=== PATIENT | male | born 1960 | race African-American/Black ===

== ENCOUNTER 2017-10-14 12:50 | Emergency (ER) | payer BC | END 2017-10-14 15:45 | disposition home or self-care (01) | LOC: ERS 12:50 | DX: J11.1 Influenza due to unidentified influenza virus with other respiratory manifestations (principal); E11.9 Type 2 diabetes mellitus without complications; Z79.84 Long term (current) use of oral hypoglycemic drugs | CPT/HCPCS: 99283 ==

== ENCOUNTER 2020-11-08 15:04 | Inpatient (IN) | payer BC, OTHER ==
[~2020-11-08 15:04] MED LIST: Iopamidol-370 76% 500 ML 1 ML ONE
[2020-11-08 15:39] LABS: #Eosinphils 0.1 thou/uL (0.0-0.7); #Lymphocytes 1.8 thou/uL (1.20-3.40); #Monocytes 0.7 thou/uL (0.11-0.59); %Basophils 0.6 % (0.0-1.0); %Eosinophils 2.3 % (0.0-10.0); %Lymphocytes 31.5 % (21.0-51.0); %Monocytes 12.4 % (0.0-10.0); %Neutrophils 53.1 % (42.0-75.0); Hemoglobin 15.4 g/dL (14.0-18.0); Mean Corpuscular Volume 90.6 fL (78.0-98.0); Mean Platelet Volume 8.2 fL (7.4-10.4); Platelet Count 274 thou/uL (130-400); RBC Distribution Width 12.1 % (11.5-14.5); Red Blood Cell (RBC) Count 5.31 mill/uL (4.70-6.10); White Blood Cell (WBC) Count 5.7 thou/uL (4.8-10.8)
--- NOTE | 2020-11-08 15:44 | RAD ---
PORTABLE CHEST: 11/08/20 HISTORY: COVID positive. Increasing shortness of breath. Heart size and mediastinum are within normal limits. Lungs appears clear of any infiltrative process. IMPRESSION: No active intrathoracic disease. POS: AH
[2020-11-08 15:58] LABS: ALT (SGPT) 57 U/L (8-55); AST (SGOT) 24 U/L (5-34); Albumin 4.2 g/dL (3.5-5.0); Alkaline Phosphatase 74 U/L (40-110); Anion Gap 17 mmol/L (10-20); BUN (Urea Nitrogen) 14 mg/dL (8.4-25.7); Bilirubin, Total 0.4 mg/dL (0.2-1.2); Calc. Creatinine Clearance 0 mL/min (70-130); Calcium 9.6 mg/dL (7.8-10.44); Carbon Dioxide 27 mmol/L (22-29); Chloride 103 mmol/L (98-107); Globulin 3.4 g/dL (2.4-3.5); Glucose 248 mg/dL (70-105); Potassium 3.6 mmol/L (3.5-5.1); Protein, Total 7.6 g/dL (6.0-8.3); Sodium 143 mmol/L (136-145)
[2020-11-08] MEDS ORDERED: Dexamethasone 10 MG/ML VIAL ONE (16:10)
[2020-11-08] MEDS ORDERED: Albuterol 200 PUFF (6.7GM INHALER) ONE (16:13)
--- NOTE | 2020-11-08 16:44 | CT ---
CT PULMONARY ANGIOGRAM WITH IV CONTRAST AND 3D POSTPROCESSIN11/08/20 HISTORY: Worsening shortness of breath with recently diagnosis of COVID-19 infection. FINDINGS: There is good opacification of the pulmonary arterial vasculature with filling defects in the pulmona ry arterial branches bilaterally and a small saddle embolus in the bifurcation extending into the gisele n pulmonary arteries on either side. There is straightening of the interventricular septum suggestive of right ventricular strain. No pleural or pericardial effusions are seen. There is mild scarring in the peripheral aspect of the right lower lung. There are scattered bullous changes. Mild small patch y areas of ground glass opacities noted in the lower lobes posteriorly. No acute osseous abnormalitie s are seen. There are degenerative changes in the spine and costovertebral junctions. IMPRESSION: Extensive bilateral pulmonary embolism. Discussed over the telephone with the ER physician, Dr. Delio Pinto at 4:28 p.m. POS: OFF
[2020-11-08 17:00] LABS: CKMB 1.6 ng/mL (0-6.6)
[2020-11-08 17:15] LABS: INR-International Normal Ratio 1.1; PTT 27.5 sec (22.9-36.1); Prothrombin Time 14.9 sec (12.0-14.7)
[2020-11-08 18:15] LABS: Bilirubin Negative (Negative); Blood, Urine Trace (Negative); Clarity Clear (Clear); Glucose, Urine (Dipstick) Greater than 1000 mg/dL (Negative); Ketone, Urine Negative (Negative); Leukocyte 250 Leu/uL (Negative); Nitrite Negative (Negative); Protein, Urine (Dipstick) 50 mg/dL (Neg-Trace); Specific Gravity, Urine 1.046 (1.002-1.036); Squamous Epithelial None Seen HPF (0-3); Urobilinogen Normal mg/dL (Less than 2); WBC/HPF 21-50 HPF (0-3); pH, Urine 5.5 (5.0-9.0)
[2020-11-08 18:25] LABS: Bacteria/HPF 1+ HPF (None Seen)
[2020-11-08 19:06] LABS: Lactic Acid 2.6 mmol/L (0.5-2.2)
[2020-11-08] MEDS ORDERED: Heparin 25,000 units/D5W 500 ML ONE (19:06)
[2020-11-08] MEDS ORDERED: Heparin 10,000 UNITS/ 10 ML VIAL ONE (19:06)
[2020-11-08 19:19] LABS: INR-International Normal Ratio 2.2
[2020-11-08 19:20] LABS: PTT 74.7 sec (22.9-36.1)
[2020-11-08 19:44] LABS: Troponin I 0.569 ng/mL (< 0.028)
[2020-11-08] MEDS ORDERED: Promethazine HCl 12.5 MG in Sodium Chloride 0.9% 50 ML IVPB PRN (19:51)
[2020-11-08] MEDS ORDERED: Albuterol 200 PUFF (6.7GM INHALER) INH PRN (19:51)
[2020-11-08] MEDS ORDERED: Guaifenesin DM 100-10/5 ML UDCUP PO PRN (19:51)
[2020-11-08] MEDS ORDERED: Acetaminophen 325 MG TAB PO PRN (19:51)
[2020-11-08] MEDS ORDERED: cloNIDine 0.1 MG TAB PO PRN (19:51)
[2020-11-08] MEDS ORDERED: Labetalol HCl 100 MG/20 ML VIAL SLOW IVP PRN (19:51)
[2020-11-08] MEDS ORDERED: HYDROcodone/Acetaminophen 5/325 mg Tablet PO PRN (19:51)
[2020-11-08] MEDS ORDERED: Ondansetron PF 4 MG/2 ML Vial IVP PRN (19:51)
[2020-11-08] MEDS ORDERED: hydrALAZINE 20 MG/ML VIAL SLOW IVP PRN (19:51)
[2020-11-08] MEDS ORDERED: Electrolyte Replacement Protocol 1 EACH FS SCH (20:00)
[2020-11-08] MEDS ORDERED: Heparin 10,000 UNITS/ 10 ML VIAL SLOW IVP SCH (20:30)
[2020-11-08] MEDS ORDERED: Heparin 25,000 units/D5W 500 ML IV SCH (20:30)
[2020-11-08 20:43] VITALS: BMI 33.1
[2020-11-08] MEDS ORDERED: Azithromycin 500 MG in Syringe 0 ML IVPB SCH (21:00)
[2020-11-08] MEDS ORDERED: cefTRIAXone\\ROCEPHIN 1 GM in Sodium Chloride 0.9% 100 ML IVPB SCH (21:00)
[2020-11-08] MEDS: Famotidine 20 MG TAB PO SCH (21:21)
[2020-11-08 22:08] LABS: Troponin I 0.669 ng/mL (< 0.028)
[2020-11-09 01:44] LABS: PTT 224.9 sec (22.9-36.1)
--- NOTE | 2020-11-09 01:47 | PDOC.HHP ---
Hospitalist HPI - History of Present Illness Shortness of breath History of Present Illness: Patient is a 60 year old male with PMH DM, DVT who presents to ED for shortness of breath. Patient diagnosed with covid on 11/02, reports worsening SOB over that time, especially last 2 days, no fever or chest pain. He has a history of large DVT in the past, completed period of using anticoagutation and is now not on chronic anticoagulation. CT scan in ED found large saddle PE. BP was noted in 90s systolic. patient recieved tPA, started on heparin drip. he felt much better after tPA. he was covid positive, however as symptoms improved after tPA suspected that PE more cause of sypmtoms. patient admitted to CCU for post tPA monitoring. Hospitalist ROS - Review of Systems Constitutional: denies: fever, chills, sweats, weakness, malaise, other Eyes: denies: pain, vision change, conjunctivae inflammation, eyelid inflamm ation, redness, other ENT: denies: ear pain, ear discharge, nose pain, nose discharge, nose congestion, mouth pain, mouth swelling, throat pain, throat swelling, other Respiratory: denies: cough, dry, shortness of breath, hemoptysis, SOB with excertion, pleuritic pain, sputum, wheezing, other Cardiovascular: denies: chest pain, palpitations, orthopnea, paroxysmal noc. dyspnea, edema, light headedness, other Gastrointestinal: denies: nausea, vomiting, abdominal pain, diarrhea, constipation, melena, hematochezia, other Genitourinary: denies: dysuria, frequency, incontinence, hematuria, retention, other Musculoskeletal: denies: neck pain, shoulder pain, arm pain, back pain, hand pain, leg pain, foot pain, other Skin: denies: rash, lesions, kwame, bruising, other Neurological: denies: weakness, numbness, incoordination, change in speech, confusion, seizures, other All other systems reviewed; all pertinent +/- noted in HPI/Subj - Medication Medications: Active Medications Generic Name Dose Route Start Last Admin Trade Name Freq PRN Reason Stop Dose Admin Acetaminophen 650 mg 11/08/20 19:51 11/08/20 21:31 Acetaminophen 325 Mg Tab PO 650 mg Q4H PRN Administration Headache/Fever/Mild Pain (1-3) Famotidine 20 mg 11/08/20 21:00 11/08/20 21:21 Famotidine 20 Mg Tab PO 20 mg BID ELIEZER Administration metFORMIN FriNov 08, 2020 15:24 GENE Low Miranda TABLET : Strength - 1,000 mg : ORAL Patient Dose: 1000 mg Oral 2 times a day (before meals). Januvia FriNov 08, 2020 15:24 GENE Low Miranda TABLET : Strength - 25 mg : ORAL Patient Dose: UNK mg Oral once a day (in the morning). Jardiance FriNov 08, 2020 15:25 GENE Low Miranda tablet : Strength - 25 mg : ORAL Patient Dose: 1 tab(s) 2 times a day (before meals). Hospitalist History - Past Medical History Other Medical History: DM, DVT - Past Surgical History Past Surgical History: reports: no pertinent history - Family History Family History: reports: no pertinent history - Social History Alcohol: reports: None Drugs: reports: none - Exam General Appearance: NAD, awake alert Eye: PERRL, anicteric sclera ENT: normocephalic atraumatic, no oropharyngeal lesions, moist mucosa Neck: supple, symmetric, no JVD, no thyromegaly, no lymphadenopathy, no carotid bruit Heart: RRR, no murmur, no gallops, no rubs, normal peripheral pulses Respiratory: CTAB, no wheezes, no rales, no ronchi, normal chest expansion, no tachypnea, normal percussion Gastrointestinal: soft, non-tender, non-distended, normal bowel sounds, no palpable masses, no hepatomegaly, no splenomegaly, no bruit Extremities: no cyanosis, no clubbing, no edema Skin: normal turgor, no lesions, no rashes Neurological: cranial nerve grossly intact, normal sensation to touch, no weakness, no focal deficits, no new deficit Musculoskeletal: normal tone, normal strength, no muscle wasting Psychiatric: normal affect, normal behavior, A&O x 3 Hospitalist Results - Labs Result Diagrams: 11/08/20 15:29 11/08/20 15:29 Lab results: WBC 5.7 thou/uL (4.8-10.8) 11/08/20 15:29 Hgb 15.4 g/dL (14.0-18.0) 11/08/20 15: Hct 48.1 % (42.0-52.0) 11/08/20 15: MCV 90.6 fL (78.0-98.0) 11/08/20 15: Plt Count 274 thou/uL (130-400) 11/08/20 15: Neutrophils % 53.1 % (42.0-75.0) 11/08/20 15:29 Sodium 143 mmol/L (136-145) 11/08/20 15: Potassium 3.6 mmol/L (3.5-5.1) 11/08/20 15: Chloride 103 mmol/L (98-107) 11/08/20 15: Carbon Dioxide 27 mmol/L (22-29) 11/08/20 15: BUN 14 mg/dL (8.4-25.7) 11/08/20 15: Creatinine 1.38 mg/dL (0.7-1.3) H 11/08/20 15: Glucose 248 mg/dL (70-105) H 11/08/20 15: Lactic Acid 2.6 mmol/L (0.5-2.2) H 11/08/20 18:13 Calcium 9.6 mg/dL (7.8-10.44) 11/08/20 15: Total Bilirubin 0.4 mg/dL (0.2-1.2) 11/08/20 15: AST 24 U/L (5-34) 11/08/20 15: ALT 57 U/L (8-55) H 11/08/20 15: Alkaline Phosphatase 74 U/L (40-110) 11/08/20 15: CK-MB (CK-2) 1.6 ng/mL (0-6.6) 11/08/20 15: Troponin I 0.669 ng/mL (< 0.028) H* 11/08/20 21: B-Natriuretic Peptide 90.8 pg/mL (0-100) 11/08/20 15: Serum Total Protein 7.6 g/dL (6.0-8.3) 11/08/20 15: Albumin 4.2 g/dL (3.5-5.0) 11/08/20 15: Urine Ketones Negative mg/dL (Negative) 11/08/20 17:52 Urine Blood Trace (Negative) A 11/08/20 17:52 Urine Nitrite Negative (Negative) 11/08/20 17:52 Ur Leukocyte Esterase 250 Donell/uL (Negative) A 11/08/20 17:52 Urine RBC 4-6 HPF (0-3) A 11/08/20 17:52 Urine WBC 21-50 HPF (0-3) A 11/08/20 17:52 Ur Squamous Epith Cells None Seen HPF (0-3) 11/08/20 17:52 Urine Bacteria 1+ HPF (None Seen) A 11/08/20 17:52 Additional comment: VITAL SIGNS FriNov 08, 2020 15:18 GENE Low Miranda BP: 99/75 MAP: 83 Pulse: 110 Resp: 24 Pain: 2 O2 sat: 89 on (Room Air) Time: 11/08/2020 15:18. labs, imaging reports, Ed documents reviewed. - EKG Interpretation EKG: EKG INTERPRETATION Wed Nov 08, 2020 15:33 DO Pinto Anthony MONITOR STRIP Sinus tachycardia. 12 LEAD EKG INTERPRETATION 109 QT 500 right bundle branch block T wave inversions in the anterior inferior leads. EKG intependantly reviewed and agree with ED physician interpretation Hospitalist H&P A/P - Plan Plan: Patient is a 60 year old male with PMH DM, DVT who presents to ED for shortness of breath. # covid 19 infection # pulmonary embolism Patient diagnosed with covid on 11/02, reports worsening SOB over that time, especially last 2 days, no fever or chest pain. He has a history of large DVT in the past, completed period of using anticoagutation and is now not on chronic anticoagulation. CT scan in ED found large saddle PE. BP was noted in 90s systolic. patient recieved tPA, started on heparin drip. he felt much better after tPA. he was covid positive, however as symptoms improved after tPA suspected that PE more cause of sypmtoms. patient admitted to CCU for post tPA monitoring. - admit to CCU - continue heparin drip - close monitoring - has history of DVT, will likely need prolonged course of anticoagulation on discharge - continue dexamethasone, levaquin
[2020-11-09 04:35] LABS: #Lymphocytes 0.7 thou/uL (1.20-3.40); #Monocytes 0.3 thou/uL (0.11-0.59); #Neutrophils 6.3 thou/uL (1.40-6.50); %Basophils 0.3 % (0.0-1.0); %Eosinophils 0.2 % (0.0-10.0); %Lymphocytes 9.2 % (21.0-51.0); %Monocytes 4.1 % (0.0-10.0); %Neutrophils 86.3 % (42.0-75.0); Hemoglobin 12.3 g/dL (14.0-18.0); Mean Corpuscular HGB CONC 32.4 g/dL (32.0-36.0); Mean Corpuscular Hemoglobin 29.1 pg (27.0-31.0); Mean Platelet Volume 7.9 fL (7.4-10.4); Platelet Count 188 thou/uL (130-400); Red Blood Cell (RBC) Count 4.21 mill/uL (4.70-6.10); White Blood Cell (WBC) Count 7.3 thou/uL (4.8-10.8)
[2020-11-09 04:55] LABS: Anion Gap 11 mmol/L (10-20); BUN (Urea Nitrogen) 11 mg/dL (8.4-25.7); Calc. Creatinine Clearance 148 mL/min (70-130); Calcium 7.2 mg/dL (7.8-10.44); Carbon Dioxide 22 mmol/L (22-29); Chloride 111 mmol/L (98-107); Glucose 177 mg/dL (70-105); Magnesium 1.7 mg/dL (1.6-2.6); Potassium 3.8 mmol/L (3.5-5.1); Sodium 140 mmol/L (136-145)
[2020-11-09] MEDS ORDERED: Magnesium 2 GM/50 ML 2 GM in Premix Bag 1 BAG IVPB SCH (06:45)
[2020-11-09] MEDS: Famotidine 20 MG TAB PO SCH ×2 (07:30→20:46)
[2020-11-09] MEDS: Dexamethasone 4 mg/ml Vial SLOW IVP SCH (07:30)
--- NOTE | 2020-11-09 11:18 | CON ---
DATE OF CONSULTATION: 11/09/2020 REASON FOR CONSULTATION: Elevated troponins. HISTORY OF PRESENT ILLNESS: Mr. Garces is a very pleasant 60-year-old white gentleman, who comes to the hospital for worsening shortness of breath. He was diagnosed with COVID-19 pneumonia about seven days ago. However, he slowly started to get worsening shortness of breath, worse in the last two days. No fevers. No chest pains. He was evaluated in the ER and was found to have a large saddle embolus. Because his blood pressure was in the 90s and such a large clot burden, he received tPA and started on heparin drip. He actually felt a lot better after the tPA was administered. Cardiology is being consulted. During his evaluation, troponins were drawn and they have trended upwards. PAST MEDICAL HISTORY: 1. Type 2 diabetes. 2. History of DVTs. 3. History of COVID-19 pneumonia diagnosed just a week ago. 4. GERD. OUTPATIENT MEDICATIONS: 1. Metformin 1000 mg twice a day. 2. Januvia 25 mg a day. 3. Jardiance 25 mg twice a day. ALLERGIES: NO KNOWN DRUG ALLERGIES. SOCIAL HISTORY: No alcohol, tobacco, or drugs. FAMILY HISTORY: Noncontributory. PAST SURGICAL HISTORY: None. REVIEW OF SYSTEMS: A 12-point review of systems was done and was found to be negative other than stated in the history of present illness. PHYSICAL EXAMINATION: VITAL SIGNS: Temperature 98.4, pulse 95, respiratory rate 22, saturating 95% on 2 L nasal cannula, and blood pressure 126/80. GENERAL: Awake, alert and oriented x3. The rest of the physical exam was secondary to the active COVID-19 infection. LABORATORY DATA: Laboratory work was reviewed. CBC with a white count of 7, hemoglobin of 12.3, hematocrit 37, platelet count of 188. Coags were reviewed. Chemistries were reviewed. His troponin is 0.06 up to 0.56 and then 0.66. BNP was 90. Lactic acid was 2.6. Rest of metabolic profile was unremarkable except for sugars of 177 and calcium 7.2. UA had 50 proteins, 250 leukocyte esterase, 21 to 50 white cells, 1+ bacteria. IMAGING DATA: CT of the chest was reviewed. EKG was reviewed. He has right bundle-branch block. ASSESSMENT: 1. Submassive pulmonary embolism. 2. Rnn-VM-vruvhboog myocardial infarction, most likely type 2, type of myocardial infarction demand ischemia. 3. Acute COVID-19 infection. PLAN: 1. Continue post tPA protocol as well as full anticoagulation with heparin. 2. At this time, his elevated troponins are most likely related to his submassive pulmonary embolism and no further workup is warranted from the cardiac perspective. 3. We will get an echocardiogram to assess the right side of his heart to see what his RV function is with his PE. Thank you for letting us to participate in this patient's care. We will follow. Job ID: [id number]
[2020-11-09] MEDS: Heparin 25,000 units/D5W 500 ML IVPB SCH (12:46)
--- NOTE | 2020-11-09 14:58 | PDOC.HOSPP ---
- Subjective Encounter Date: 11/09/20 Subjective: Patient is doing well on room air. In no cardiopulmonary distress. - Objective Vital Signs & Weight: Vital Signs (12 hours) Temp Pulse Resp BP Pulse Ox 11/09/20 14:51 98.5 F 89 20 128/91 H 96 11/09/20 11:00 97.0 F L 11/09/20 08:00 97.3 F L Weight Weight 244 lb 4.355 oz Most Recent Monitor Data Heart Rate from ECG 96 NIBP 148/94 NIBP BP-Mean 112 Respiration from ECG 37 SpO2 95 I&O: 11/08/20 11/09/20 11/10/20 06:59 06:59 06:59 Intake Total 254 1032 Output Total 1800 600 Balance -1546 432 Result Diagrams: 11/09/20 03:54 11/09/20 03:54 Hospitalist ROS - Medication Medications: Active Medications Generic Name Dose Route Start Last Admin Trade Name Freq PRN Reason Stop Dose Admin Acetaminophen 650 mg 11/08/20 19:51 11/08/20 21:31 Acetaminophen 325 Mg Tab PO 650 mg Q4H PRN Administration Headache/Fever/Mild Pain (1-3) Dexamethasone 6 mg 11/09/20 09:00 11/09/20 07:30 Dexamethasone 4 Mg/Ml Vial SLOW IVP 6 mg DAILY ELIEZER Administration Famotidine 20 mg 11/08/20 21:00 11/09/20 07:30 Famotidine 20 Mg Tab PO 20 mg BID ELIEZER Administration Heparin Sodium/Dextrose 500 mls @ 0 mls/hr 11/09/20 18:00 11/09/20 12:46 Heparin 25,000 Units/D5w IVPB 500 mls INF ELIEZER Administration Protocol Per Protocol Sodium Chloride 10 ml 11/09/20 09:00 11/09/20 07:31 Flush - Normal Saline 10 Ml Syringe IVF 10 ml Q12HR ELIEZER Administration - Exam General Appearance: NAD, awake alert ENT: normocephalic atraumatic Neck: supple, symmetric, no JVD Heart: RRR, no murmur, no gallops Respiratory: CTAB, no wheezes, no rales, no ronchi Gastrointestinal: soft, non-tender, non-distended, normal bowel sounds Extremities: no cyanosis, no clubbing, no edema Neurological: cranial nerve grossly intact Psychiatric: normal affect, normal behavior Hosp A/P (1) Saddle embolism of pulmonary artery Code(s): I26.92 - SADDLE EMBOLUS OF PULMONARY ARTERY W/O ACUTE COR PULMONALE Status: Acute (2) Hx of deep venous thrombosis Code(s): Z86.718 - PERSONAL HISTORY OF OTHER VENOUS THROMBOSIS AND EMBOLISM Status: Acute (3) COVID-19 Code(s): U07.1 - COVID-19 Status: Acute (4) Elevated troponin I level Code(s): R77.8 - OTHER SPECIFIED ABNORMALITIES OF PLASMA PROTEINS Status: Acute - Plan Assessment Patient is a 60 year old male with a PMH of DVT and a recent diagnosis of COVID 19 who is currently admitted with saddle PE. He received tPA in the ER due to concern for massive PE. His SBP was in the low 90s. He is doing well now on heparin infusion. Cardiology was consulted today for rising troponin levels. He is in the unit for monitoring Acute PE Hx of DVT COVID 19 DM-2 PLAN: I will continue heparin infusion pending cardiac work up Follow up 2-D echo Trend troponins every 6 hours Patient will most likely require usp systemic anticoagulation I plan to discharge him on NOAC once above work up is complete Continue dexamethasone for COVID 19 No need for remdesivir or CCP due to lack of hypoxia Continue adjuctive therapy with multi-vitamins and zinc Good prognosis
[2020-11-09 17:18] LABS: Troponin I 0.156 ng/mL (< 0.028)
[2020-11-09] MEDS ORDERED: Heparin 10,000 UNITS/ 10 ML VIAL SLOW IVP SCH (18:00)
--- NOTE | 2020-11-09 18:28 | CON ---
DATE OF CONSULTATION: 11/09/2020 HISTORY OF PRESENT ILLNESS: Mr. Garces is a very pleasant gentleman, who said he started feeling bad on Friday. He started noticing that he was short of breath. He presented last night with shortness of breath. He was diagnosed with COVID- 19 on November 02, but he said he had symptoms for a week prior to that starting on the of the year. Reportedly, he has had a thromboembolic event in the past. He received tPA in the emergency department. I was consulted because of his presence in the Critical Care Unit. He has never been in the hospital here. Family history is negative for hypercoagulable states. He is not a heavy drinker. Nonsmoker. He has a history of diabetes REVIEW OF SYSTEMS: Ten-point review of systems otherwise negative. He actually says he feels quite well at this point. He is on a heparin drip. PHYSICAL EXAMINATION: VITAL SIGNS: He is afebrile. Heart rate is 89, respiratory rate is 20. Oximetry is 96 on room air. Interestingly enough, he was not hypoxic when he came in. Blood pressure 128/91. HEAD AND NECK: Unremarkable. LUNGS: Clear. HEART: Regular rhythm. S1 and S2 are normal. ABDOMEN: Soft and nontender. EXTREMITIES: Without clubbing, cyanosis, or edema. DIAGNOSTIC STUDIES: Echocardiogram shows normal ejection fraction, mild diastolic dysfunction. IMPRESSION: Thromboembolic disease is likely subacute, submassive, and not one acute event. He has dramatically improved. He could transfer out of the critical care unit and eventually be switched to Eliquis. I am not sure that I would recommend lifetime anticoagulation, given that he has COVID and is definitely a risk factor for thromboembolic events. Probably, we will treat him with a full dose Eliquis for 3 to 6 months and then switch him to prophylactic dose Eliquis for a year and consider stopping it after that. I will be happy to follow him as an outpatient and I will see him again tomorrow. This is a 70-minute consult, 50% of the time spent on the unit coordinating care. Job ID: [id number] MTDD
[2020-11-09] MEDS ORDERED: Enoxaparin Sodium 40 MG/0.4 ML SYRINGE SC SCH (21:00)
[2020-11-10] MEDS: Heparin 25,000 units/D5W 500 ML IVPB SCH (02:58)
[2020-11-10 05:06] LABS: #Basophils 0.1 thou/uL (0.0-0.2); #Lymphocytes 1.6 thou/uL (1.20-3.40); #Neutrophils 10.1 thou/uL (1.40-6.50); %Basophils 0.4 % (0.0-1.0); %Eosinophils 0.4 % (0.0-10.0); %Lymphocytes 12.4 % (21.0-51.0); %Monocytes 7.8 % (0.0-10.0); %Neutrophils 79.1 % (42.0-75.0); Hemoglobin 13.2 g/dL (14.0-18.0); Mean Corpuscular HGB CONC 31.9 g/dL (32.0-36.0); Mean Corpuscular Hemoglobin 28.5 pg (27.0-31.0); Mean Corpuscular Volume 89.2 fL (78.0-98.0); Mean Platelet Volume 7.9 fL (7.4-10.4); Platelet Count 217 thou/uL (130-400); RBC Distribution Width 12.2 % (11.5-14.5); Red Blood Cell (RBC) Count 4.65 mill/uL (4.70-6.10); White Blood Cell (WBC) Count 12.8 thou/uL (4.8-10.8)
[2020-11-10 05:27] LABS: Anion Gap 15 mmol/L (10-20); BUN (Urea Nitrogen) 13 mg/dL (8.4-25.7); Calc. Creatinine Clearance 138 mL/min (70-130); Calcium 8.2 mg/dL (7.8-10.44); Carbon Dioxide 22 mmol/L (22-29); Chloride 105 mmol/L (98-107); Glucose 204 mg/dL (70-105); Magnesium 2.1 mg/dL (1.6-2.6); Potassium 3.8 mmol/L (3.5-5.1); Sodium 138 mmol/L (136-145)
[2020-11-10 07:54] LABS: Hemoglobin A1c 8.2 % (4.0-6.0)
[2020-11-10] MEDS: Cholecalciferol (Vitamin D3) 400 UNITS TAB PO SCH (08:27)
[2020-11-10] MEDS: Dexamethasone 4 mg/ml Vial SLOW IVP SCH (08:27)
[2020-11-10] MEDS: Ascorbic Acid 500 mg Chewable Tablet PO SCH (08:27)
[2020-11-10] MEDS: Thiamine 100 MG TAB PO SCH (08:27)
[2020-11-10] MEDS: Zinc Sulfate 220 MG CAP PO SCH (08:27)
[2020-11-10] MEDS: Famotidine 20 MG TAB PO SCH ×2 (08:27→20:17)
[2020-11-10] MEDS: Apixaban 5 MG TAB PO SCH ×2 (08:35→20:20)
--- NOTE | 2020-11-10 12:06 | PDOC.HOSPP ---
- Subjective Encounter Date: 11/10/20 Subjective: Overnight. Patient still on room air and comfortable. Downgraded from ICU. - Objective Vital Signs & Weight: Vital Signs (12 hours) Temp Pulse Resp BP Pulse Ox 11/10/20 11:28 98.1 F 71 20 130/88 95 11/10/20 08:02 98.6 F 82 16 140/79 96 11/10/20 08:00 96 11/10/20 04:44 98.7 F 69 14 131/86 94 L 11/10/20 03:42 98.0 F 65 19 127/82 97 11/10/20 00:30 98.2 F 76 12 139/86 Weight Weight 244 lb 4.355 oz Most Recent Monitor Data Heart Rate from ECG 96 NIBP 148/94 NIBP BP-Mean 112 Respiration from ECG 37 SpO2 95 I&O: 11/09/20 11/10/20 11/11/20 06:59 06:59 06:59 Intake Total 254 1432 Output Total 1800 2300 650 Balance -1546 -868 -650 Result Diagrams: 11/10/20 04:51 11/10/20 04:51 Hospitalist ROS - Medication Medications: Active Medications Generic Name Dose Route Start Last Admin Trade Name Freq PRN Reason Stop Dose Admin Acetaminophen 650 mg 11/08/20 19:51 11/08/20 21:31 Acetaminophen 325 Mg Tab PO 650 mg Q4H PRN Administration Headache/Fever/Mild Pain (1-3) Apixaban 10 mg 11/10/20 09:00 11/10/20 08:35 Apixaban 5 Mg Tab PO 11/16/20 09:00 10 mg BID ELIZEER Administration Ascorbic Acid 500 mg 11/10/20 09:00 11/10/20 08:27 Ascorbic Acid 500 Mg Chewable Tablet PO 500 mg DAILY ELIEZER Administration Cholecalciferol 400 units 11/10/20 09:00 11/10/20 08:27 Cholecalciferol (Vitamin D3) 400 Units Tab PO 400 units DAILY ELIEZER Administration Dexamethasone 6 mg 11/09/20 09:00 11/10/20 08:27 Dexamethasone 4 Mg/Ml Vial SLOW IVP 6 mg DAILY ELIEZER Administration Famotidine 20 mg 11/08/20 21:00 11/10/20 08:27 Famotidine 20 Mg Tab PO 20 mg BID ELIEZER Administration Sodium Chloride 10 ml 11/09/20 09:00 11/10/20 08:35 Flush - Normal Saline 10 Ml Syringe IVF 10 ml Q12HR ELIEZER Administration Thiamine HCl 100 mg 11/10/20 09:00 11/10/20 08:27 Thiamine 100 Mg Tab PO 100 mg DAILY ELIEZER Administration Zinc Sulfate 220 mg 11/10/20 09:00 11/10/20 08:27 Zinc Sulfate 220 Mg Cap PO 220 mg DAILY ELIEZER Administration - Exam General Appearance: NAD, awake alert Eye: anicteric sclera Extremities: no cyanosis, no clubbing, no edema Skin: normal turgor, no lesions, no rashes Neurological: cranial nerve grossly intact Musculoskeletal: normal tone, normal strength, no muscle wasting Psychiatric: normal affect, normal behavior Hosp A/P (1) Saddle embolism of pulmonary artery Code(s): I26.92 - SADDLE EMBOLUS OF PULMONARY ARTERY W/O ACUTE COR PULMONALE Status: Acute (2) Hx of deep venous thrombosis Code(s): Z86.718 - PERSONAL HISTORY OF OTHER VENOUS THROMBOSIS AND EMBOLISM Status: Acute (3) COVID-19 Code(s): U07.1 - COVID-19 Status: Acute (4) Elevated troponin I level Code(s): R77.8 - OTHER SPECIFIED ABNORMALITIES OF PLASMA PROTEINS Status: Acute - Plan Assessment Patient is a 60 year old male with a PMH of DVT and a recent diagnosis of COVID 19 who is currently admitted with acute saddle PE. He received tPA in the ER due to concern for massive PE. His SBP was in the low 90s. Did well on a heparin infusion has been transitioned to NOAC. Cardiology was consulted for troponin rise to a maximum of 0.6. Patient had no chest pain. His 2D echo showed grade 1 diastolic dysfunction, otherwise normal. Acute PE Hx of DVT COVID 19 Elevated troponin DM-2 PLAN: Start Eliquis 10 mg for 7 days (until November 16), then 5 mg twice daily Due to recurrent events of venous thromboembolism he will need to be on long- term systemic anticoagulation Start pantoprazole 40 mg daily Patient agrees to take the medication for at least a year and be reassessed by his PCP I will discontinue dexamethasone upon discharge given lack of hypoxia Continue adjuctive therapy with multi-vitamins and zinc Good prognosis
--- NOTE | 2020-11-10 12:10 | PDOC.CPN ---
- Subjective Date: 11/10/20 Time: 12:08 Interval history: He feels a lot better. No new issues. - Review of Systems General: denies: fever/chills, weight/appetite/sleep changes, night sweats, fatigue Respiratory: denies: cough, congestion, shortness of breath, exercise intolerance Cardiovascular: denies: chest pain, palpitation, edema, paroxysmal nocturnal dyspnea, orthopnea Gastrointestinal: denies: nausea, vomiting, diarrhea, constipation, abd pain, GI bleeding Musculoskeletal: denies: pain, tenderness, stiffness, swelling, arthritis/arthralgias Neurological: denies: numbness, syncope, seizure, weakness - Objective Allergies/Adverse Reactions: Allergies Allergy/AdvReac Type Severity Reaction Status Date / Time No Known Allergies Allergy Unverified 11/08/20 20:27 Visit Medications: Current Medications Acetaminophen (Acetaminophen 325 Mg Tab) 650 mg PO Q4H PRN PRN Reason: Headache/Fever/Mild Pain (1-3) Last Admin: 11/08/20 21:31 Dose: 650 mg Documented by: Hydrocodone Bitart/Acetaminophen (Hydrocodone/Acetaminophen 5/325 Mg Tablet) 1 tab PO Q4H PRN PRN Reason: Moderate Pain (4-6) Albuterol Sulfate (Albuterol 200 Puff (6.7gm Inhaler)) 1 puff INH Q4H PRN PRN Reason: SOB/WHEEZE Apixaban (Apixaban 5 Mg Tab) 10 mg PO BID [facility] Stop: 11/16/20 09:00 Last Admin: 11/10/20 08:35 Dose: 10 mg Documented by: Ascorbic Acid (Ascorbic Acid 500 Mg Chewable Tablet) 500 mg PO DAILY [facility] Last Admin: 11/10/20 08:27 Dose: 500 mg Documented by: Cholecalciferol (Cholecalciferol (Vitamin D3) 400 Units Tab) 400 units PO DAILY [facility] Last Admin: 11/10/20 08:27 Dose: 400 units Documented by: Clonidine (Clonidine 0.1 Mg Tab) 0.1 mg PO BID PRN PRN Reason: SBP > 160 use second Famotidine (Famotidine 20 Mg Tab) 20 mg PO BID [facility] Last Admin: 11/10/20 08:27 Dose: 20 mg Documented by: Guaifenesin/Dextromethorphan (Guaifenesin Dm 100-10/5 Ml Udcup) 15 ml PO Q4H PRN PRN Reason: Cough Hydralazine HCl (Hydralazine 20 Mg/Ml Vial) 10 mg SLOW IVP Q6H PRN PRN Reason: SBP GREATER THAN 160 Promethazine HCl 12.5 mg/ (Sodium Chloride) 50.5 mls @ 202 mls/hr IVPB Q6H PRN PRN Reason: Nausea/vomiting use second Labetalol HCl (Labetalol Hcl 100 Mg/20 Ml Vial) 20 mg SLOW IVP Q4H PRN PRN Reason: SBP > 160 use first Miscellaneous Medication (Electrolyte Replacement Protocol 1 Each) 1 each FS ASDIR ELIEZER Ondansetron HCl (Ondansetron Pf 4 Mg/2 Ml Vial) 4 mg IVP Q6H PRN PRN Reason: Nausea/Vomiting use 1st Pantoprazole Sodium (Pantoprazole 40 Mg Tab) 40 mg PO DAILY [facility] Sodium Chloride (Flush - Normal Saline 10 Ml Syringe) 10 ml IVF Q12HR [facility] Last Admin: 11/10/20 08:35 Dose: 10 ml Documented by: Sodium Chloride (Flush - Normal Saline 10 Ml Syringe) 10 ml IVF PRN PRN PRN Reason: Saline Flush Thiamine HCl (Thiamine 100 Mg Tab) 100 mg PO DAILY [facility] Last Admin: 11/10/20 08:27 Dose: 100 mg Documented by: Zinc Sulfate (Zinc Sulfate 220 Mg Cap) 220 mg PO DAILY [facility] Last Admin: 11/10/20 08:27 Dose: 220 mg Documented by: Vital Signs & Weight: Vital Signs Temp Pulse Resp BP Pulse Ox 11/10/20 11:28 98.1 F 71 20 130/88 95 11/10/20 08:02 98.6 F 82 16 140/79 96 11/10/20 08:00 96 11/10/20 04:44 98.7 F 69 14 131/86 94 L 11/10/20 03:42 98.0 F 65 19 127/82 97 11/10/20 00:30 98.2 F 76 12 139/86 Weight 244 lb 4.355 oz - Physical Exam General: alert & oriented x3, other (Rest of physical exam not done due to active COVID-19 pneumonia.) - Labs Result Diagrams: 11/10/20 04:51 11/10/20 04:51 Troponin/CKMB CK-MB (CK-2) 1.6 ng/mL (0-6.6) 11/08/20 15:29 Troponin I 0.156 ng/mL (< 0.028) H 11/09/20 15:31 - Telemetry Sinus rhythms and dysrhythmias: sinus rhythm - Assessment/Plan Assessment/Plan: 1. Sub massive PE 2. CPOVID-19 infection 3. NSTEMI, demand ischemia, Type 2 IN. PLAN: - Continue full anticoagulation per primary team - Will plan on risk stratification in 6 weeks with stress test, my office will reach out to him to schedule this. - Will sign off. Please call with any questions.
--- NOTE | 2020-11-10 13:41 | PRG ---
DATE OF SERVICE: 11/10/2020 SUBJECTIVE: Hero Garces is doing extremely well. He is on room air. OBJECTIVE: VITAL SIGNS: Heart rate is in the 60s, respiratory rates in the teens, oximetry is 94 to 96, blood pressure 131/86. LUNGS: Clear. IMPRESSION: Pulmonary embolism, clinically improved, now on Eliquis. In my opinion, he can go home in the morning to complete his loading dose of Eliquis. 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 He can follow up with me in 4 to 6 weeks. He should be given a prescription at discharge for maintenance dose Eliquis as well as a loading dose with at least one refill on the maintenance dose, so he can make it to his appointment to see me. Job ID: [id number]
[2020-11-11 05:46] LABS: #Eosinphils 0.1 thou/uL (0.0-0.7); #Lymphocytes 1.4 thou/uL (1.20-3.40); #Monocytes 0.9 thou/uL (0.11-0.59); #Neutrophils 7.7 thou/uL (1.40-6.50); %Basophils 0.2 % (0.0-1.0); %Eosinophils 0.6 % (0.0-10.0); %Lymphocytes 14.1 % (21.0-51.0); %Monocytes 9.1 % (0.0-10.0); %Neutrophils 76.1 % (42.0-75.0); Hemoglobin 13.1 g/dL (14.0-18.0); Mean Corpuscular HGB CONC 31.5 g/dL (32.0-36.0); Mean Corpuscular Hemoglobin 28.2 pg (27.0-31.0); Mean Corpuscular Volume 89.6 fL (78.0-98.0); Mean Platelet Volume 7.9 fL (7.4-10.4); Platelet Count 228 thou/uL (130-400); RBC Distribution Width 12.3 % (11.5-14.5); Red Blood Cell (RBC) Count 4.66 mill/uL (4.70-6.10); White Blood Cell (WBC) Count 10.2 thou/uL (4.8-10.8)
[2020-11-11 06:11] LABS: Anion Gap 13 mmol/L (10-20); BUN (Urea Nitrogen) 12 mg/dL (8.4-25.7); Calc. Creatinine Clearance 138 mL/min (70-130); Calcium 8.4 mg/dL (7.8-10.44); Carbon Dioxide 25 mmol/L (22-29); Chloride 105 mmol/L (98-107); Glucose 210 mg/dL (70-105); Sodium 139 mmol/L (136-145)
[2020-11-11] MEDS ORDERED: Magnesium 2 GM/50 ML 2 GM in Premix Bag 1 BAG IVPB SCH (07:00)
[2020-11-11] MEDS: Apixaban 5 MG TAB PO SCH (07:48)
[2020-11-11] MEDS: Zinc Sulfate 220 MG CAP PO SCH (07:49)
[2020-11-11] MEDS: Cholecalciferol (Vitamin D3) 400 UNITS TAB PO SCH (07:49)
[2020-11-11] MEDS: Ascorbic Acid 500 mg Chewable Tablet PO SCH (07:49)
[2020-11-11] MEDS: Famotidine 20 MG TAB PO SCH (07:50)
[2020-11-11] MEDS: Thiamine 100 MG TAB PO SCH (07:50)
[2020-11-11 08:02] VITALS: BP 142/92; TEMP 97.7
--- NOTE | 2020-11-11 10:29 | PDOC.DS.DS ---
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 He received tPA in the ER as he was hypotensive in the ER. He did well on UFH and was successfully transitioned to apixaban. His hospital course has been uneventful. He will be on systemic anticoagulation for at least year, at which point he will be re-evaluated by PCP regarding lifelong therapy. Resuscitation Status: 11/08/20 19:51 Resuscitation Status Routine Resuscitation Status: FULL: Full Resuscitation - Labs Lab Results: 11/11/20 05:23 11/11/20 05:23 Abnormal Lab Results - Last 48 hrs 11/09/20 11:17: APTT 84.9 H 11/09/20 15:31: Troponin I 0.156 H 11/09/20 17:26: APTT 68.9 H 11/10/20 04:51: WBC 12.8 H, RBC 4.65 L, Hgb 13.2 L, Hct 41.5 L, MCHC 31.9 L, Neutrophils % 79.1 H, Lymphocytes % 12.4 L, Neutrophils # 10.1 H, Monocytes # 1.0 H 11/10/20 04:51: APTT 86.0 H 11/10/20 04:51: Hemoglobin A1c 8.2 H 11/11/20 05:23: RBC 4.66 L, Hgb 13.1 L, Hct 41.8 L, MCHC 31.5 L, Neutrophils % 76.1 H, Lymphocytes % 14.1 L, Neutrophils # 7.7 H, Monocytes # 0.9 H Microbiology - Entire Visit 11/10/20 10:00 Urine clean catch Urine Culture - Preliminary Beta-hemolytic Streptococcus 11/08/20 15:29 Venous blood - Right Hand Blood Culture - Preliminary NO GROWTH AT 48 HOURS 11/08/20 15:29 Venous blood - Left Arm Blood Culture - Preliminary NO GROWTH AT 48 HOURS - Physical Exam Vitals: Vital Signs (12 hours) Temp Pulse Resp BP Pulse Ox 11/11/20 08:00 97.7 F 68 16 142/92 H 96 11/11/20 07:35 96 11/11/20 05:00 98.1 F 57 L 12 128/87 94 L 11/11/20 01:37 98.2 F 65 12 119/86 94 L Weight Weight 244 lb 4.355 oz Most Recent Monitor Data Heart Rate from ECG 96 NIBP 148/94 NIBP BP-Mean 112 Respiration from ECG 37 SpO2 95 Physical Exam: The patient was seen and examined on the day of discharge. General: Not in acute distress. Alert and awake HEENT: Head atraumatic, normocephalic. EOM intact Pulmonary: Lungs are clear to auscultation bilaterally CVS: Normal S1 and S2. Regular rate. Abdomen: Soft, nontender, nondistended Extremities: Without edema. Good range of motion in all extremities Skin: Warm and well perfused Psych: Mood and affect appropriate. Neuro: Grossly intact Problem - Discharge Plan Assessment: Please refer to hospital course. - Problem (1) Saddle embolism of pulmonary artery Code(s): I26.92 - SADDLE EMBOLUS OF PULMONARY ARTERY W/O ACUTE COR PULMONALE Status: Acute (2) Hx of deep venous thrombosis Code(s): Z86.718 - PERSONAL HISTORY OF OTHER VENOUS THROMBOSIS AND EMBOLISM Status: Acute (3) COVID-19 Code(s): U07.1 - COVID-19 Status: Acute (4) Elevated troponin I level Code(s): R77.8 - OTHER SPECIFIED ABNORMALITIES OF PLASMA PROTEINS Status: Acute Plan - Discharge Medications Prescriptions: Amoxicillin/Potassium Clav [Augmentin 875-125 Tablet] 1 each PO BID #10 tablet Apixaban [Eliquis] 10 mg PO BID #20 tab Pantoprazole [Protonix] 40 mg PO DAILY #30 tab Thiamine 100 mg PO DAILY #14 tab Ascorbic Acid [Vitamin C] 500 mg PO DAILY #14 tab Cholecalciferol (Vitamin D3) [Vitamin D3] 400 units PO DAILY #14 tab Zinc Sulfate 220 mg PO DAILY #14 cap Home Medications: Medication Instructions Recorded Confirmed Type Amoxicillin/Potassium Clav 1 each PO BID #10 tablet 11/11/20 Rx [Augmentin 875-125 Tablet] Apixaban [Eliquis] 10 mg PO BID #20 tab 11/11/20 Rx Ascorbic Acid [Vitamin C] 500 mg PO DAILY #14 tab 11/11/20 Rx Aspirin [Ecotrin Low Strength] 81 mg PO DAILY 11/11/20 11/11/20 History Cholecalciferol (Vitamin D3) 400 units PO DAILY #14 tab 11/11/20 Rx [Vitamin D3] Empagliflozin [Jardiance] 25 mg PO DAILY 11/11/20 11/11/20 History Latanoprost [Xalatan 0.005% Ophth 1 drop EA EYE HS 11/11/20 11/11/20 History Soln] Multivitamin With Folic Acid 1 tablet PO DAILY 11/11/20 11/11/20 History [Multiple Vitamin Tablet] Pantoprazole [Protonix] 40 mg PO DAILY #30 tab 11/11/20 Rx Pioglitazone HCl 30 mg PO DAILY 11/11/20 11/11/20 History Pravastatin Sodium 20 mg PO HS 11/11/20 11/11/20 History Thiamine 100 mg PO DAILY #14 tab 11/11/20 Rx Zinc Sulfate 220 mg PO DAILY #14 cap 11/11/20 Rx metFORMIN HCl [Metformin HCl] 1,000 mg PO BID 11/11/20 11/11/20 History sitaGLIPtin Phosphate [Januvia] 100 mg PO DAILY 11/11/20 11/11/20 History Allergies: No Known Allergies Allergy (Unverified 11/08/20 20:27) - Follow up Plan Referrals: Rodo Reyes MD [Primary Care Provider] - Nehemiah Myles MD [Active] - 3-4 Weeks Disposition: HOME Quality - Care Measures CORE MEASURES:: N/A - Stroke/TIA Did you prescribe antithrombotic therapy?: Yes
--- NOTE | 2020-11-11 11:17 | EKG ---
Test Reason : Blood Pressure : / mmHG Vent. Rate : 109 BPM Atrial Rate : 109 BPM P-R Int : 166 ms QRS Dur : 114 ms QT Int : 372 ms P-R-T Axes : 060 065 -02 degrees QTc Int : 500 ms Sinus tachycardia Right bundle branch block Septal infarct , age undetermined Abnormal ECG T wave inversion inferior/anterior Confirmed by KAITY SPRINGER ([id number]), magazine editor PATRICE PÉREZ ([id number]) on 11/11/2020 11:16:56 AM Referred By: Confirmed By:KAITY SPRINGER
--- NOTE | 2020-11-14 03:19 | PQF ---
CLINICAL DOCUMENTATION CLARIFICATION FORM: Dear : Prince Arminda Date / Time: 11/14/20317 Please exercise your independent, professional judgment in responding to the clarification form. Clinical indicators are provided on the bottom of this form for your review Please check appropriate box(es): [ ] Sepsis due to Covid infection [x] Localized infection without sepsis [ ] Other diagnosis, please specify [ ] Unable to determine In addition, please specify: Present on Admission (POA): [ ] Yes [ ] No [ ] Unable to determine Physician Signature: Date/Time: For continuity of documentation, please document condition throughout progress notes and discharge summary. Thank You. To be completed by CDI/Coding staff for physician review: Present Clinical Indicators - Signs / Symptoms / Labs Results and Location in Medical Record [x] WBC 5.7, Plt count 274, Neutrophils 53.1, Lactic acid 4.8 Laboratory 11/08 [x] Blood culture: No growth Microbiology 11/08 [x] BP 95/51, Pulse 102, Resp 24, Temp 98.1 Vital signs 11/08 [x] Presented with SOB and diagnosed with Covid H&P p1 11/08 Dr Butcher [x] Covid 19 infection H&P p5 11/08 Dr Butcher [x] CT of chest: Mild small patchy areas of ground glass opacities noted in the lower lobes Chest Xray 11/09 Present Risk Factors Results and Location in Medical Record [x] 60 year-old Male H&P p1 11/08 Dr Butcher [x] DM H&P p1 11/08 Dr Butcher [x] Covid 19 infection H&P p5 11/08 Dr Butcher [x] Pulmonary embolism H&P p5 11/08 Dr Butcher Present Treatments Results and Location in Medical Record [x] IV Levaquin 750 mg DEC 25 [x] IVF NS 1L DEC 25 [x] Isolation Order 11/08 [x] Oxygen 3L Respiratory panel 11/08 [x] Pulmo consult Consult Dr Myles 11/09 CDS/Continuous Improvement Lead Signature: Sonya Renteriaesthela Phone #: [phone] Date/Time: 11/14/20317 This is a permanent part of the Medical Record [facility]
--- NOTE | 2020-11-16 04:04 | PQF ---
CLINICAL DOCUMENTATION CLARIFICATION FORM: Dear : Prince Arminda Date / Time: 11/16/20403 Please exercise your independent, professional judgment in responding to the clarification form. Clinical indicators are provided on the bottom of this form for your review Please check appropriate box(es): [ x ] Type 2 MO (T2MI) secondary to PE [ ] Elevated troponin without MO [ ] Other diagnosis, please specify [ ] Unable to determine Physician Signature: Date/Time: For continuity of documentation, please document condition throughout progress notes and discharge summary. Thank You. To be completed by CDI/Coding staff for physician review: Present Clinical Indicators - Signs / Symptoms / Labs Results and Location in Medical Record [x] Troponon I 0.069; 0.569; 0.669; 0.0156 Laboratory 11/08-11/09 [x] Echocardiogram: 55-60% Procedure Dr Ledesma 11/09 [x] BP 106/77, Pulse 73, Resp 23, Temp 98.6 Vital signs 11/08 [x] Found saddle PE H&P p1 11/08 Dr Butcher [x] Non ST elevation MO, mosly leigh annley type [address] Rivers 11/09 [x] Elevated troponin are most likely related to his submassive pulmonary embolism Consult Dr Rivers 11/09 [x] EKG: T wave inversion ED Notes 11/08 Present Risk Factors Results and Location in Medical Record [x] 60 year-old Male H&P p1 11/08 Dr Butcher [x] DM H&P p1 11/08 Dr Butcher [x] PE H&P p5 11/08 Dr Butcher Present Treatments Results and Location in Medical Record [x] IV Activase 100 mg DEC 25 [x] IVF NS 1L DEC 25 [x] Oxygen 3L Respiratory Panel 11/08 [x] Cardio consult Consult Dr Rivers 11/09 [x] Heparin 1000 units IV DEC 25 [x] Lovenox 40mg Subcu DEC 25 [x] Eliquis 10mg Oral DEC 25 CDS/Senior Electrical Design Engineer Signature: Sonya Renteriaesthela Phone #: [phone] Date/Time: 11/16/20 0402 This is a permanent part of the Medical Record [facility]
--- NOTE | 2020-11-19 19:33 | EKG ---
Test Reason : Blood Pressure : / mmHG Vent. Rate : 088 BPM Atrial Rate : 088 BPM P-R Int : 180 ms QRS Dur : 076 ms QT Int : 392 ms P-R-T Axes : 057 020 015 degrees QTc Int : 474 ms Normal sinus rhythm Normal ECG Confirmed by JERI VYAS MD ([id number]) on 11/19/2020 7:33:54 PM Referred By: DAVID Confirmed By:JERI VYAS MD
== END 2020-11-11 11:08 | disposition home or self-care (01) | DRG 175 ==
LOC: ERS 15:04 → CCU 18:29 → 2SE 11-09 14:37
PROVIDERS: ADMIT Internal Medicine; ATTEND Internal Medicine
PROC: 3E03317 Introduction of Other Thrombolytic into Peripheral Vein, Percutaneous Approach (ICD-10-PCS; principal; 2020-11-08)
PROC: 8E0ZXY6 Isolation (ICD-10-PCS; 2020-11-08)
DX: I26.92 Saddle embolus of pulmonary artery without acute cor pulmonale (principal); U07.1 COVID-19; I21.A1 Myocardial infarction type 2; E11.9 Type 2 diabetes mellitus without complications; K21.9 Gastro-esophageal reflux disease without esophagitis; Z86.718 Personal history of other venous thrombosis and embolism; Z79.899 Other long term (current) drug therapy; Z79.84 Long term (current) use of oral hypoglycemic drugs
CPT/HCPCS: 36415; 36416; 71045; 71275; 80048; 80053; 81003; 81015; 82553; 83036; 83605; 83735; 83880; 84484; 85025; 85379; 85610; 85730; 87040; 87086; 93005; 93010; 93306; 96365; 96367; 96375; 96376; 99292; J1100; J1644; J1956; J2997; J3475; Q9967

== ENCOUNTER 2022-10-31 15:33 | Outpatient (CLI) | payer BC ==
[2022-10-31 16:32] LABS: Bilirubin Neg (Negative); Blood, Urine Negative (Negative); Clarity Clear (Clear); Glucose, Urine (Dipstick) >=1000 mg/dL (Negative); Ketone, Urine 5 mg/dL (Negative); Leukocyte 100 (Negative); Nitrite Negative (Negative); Protein, Urine (Dipstick) Negative (Neg-Trace); Specific Gravity, Urine 1.015 (1.005-1.030); Urobilinogen Normal mg/dL (Less than 2)
[2022-10-31 16:42] LABS: Hemoglobin 15.3 g/dL (13.5-17.5); Mean Corpuscular HGB CONC 32.1 g/dL (32.0-36.0); Mean Corpuscular Hemoglobin 28.7 pg (27.0-33.0); Mean Corpuscular Volume 89.1 fl (81.2-95.1); Mean Platelet Volume 10.7 fl (7.4-10.4); Platelet Count 225 10x3/uL (150-450); RBC Distribution Width 13.6 % (11.5-14.5); Red Blood Cell (RBC) Count 5.34 10x6/uL (4.32-5.72); White Blood Cell (WBC) Count 5.2 10x3/uL (3.5-10.5)
[2022-10-31 16:55] LABS: PTT 26.5 sec (22.0-33.0); Prothrombin Time 10.4 sec (9.5-12.1)
[2022-10-31 16:57] LABS: Bacteria/HPF 1+ HPF (None Seen); Squamous Epithelial None Seen HPF (0-3)
[2022-10-31 17:19] LABS: Anion Gap 17 mmol/L (10-20); BUN (Urea Nitrogen) 13 mg/dL (8.4-25.7); Calc. Creatinine Clearance 0 mL/min (70-130); Calcium 9.4 mg/dL (7.8-10.44); Carbon Dioxide 25 mmol/L (23-31); Chloride 105 mmol/L (98-107); Estimated GFR 79; Glucose 91 mg/dL (80-115); Potassium 4.8 mmol/L (3.5-5.1); Sodium 142 mmol/L (136-145)
== END 2022-10-31 15:34 | disposition home or self-care (01) ==
LOC: LABBT 15:33
PROVIDERS: ATTEND Urology
DX: Z01.812 Encounter for preprocedural laboratory examination (principal); N47.1 Phimosis
CPT/HCPCS: 80048; 81001; 85027; 85610; 85730; 87086; 93005; 93010

== ENCOUNTER 2022-11-08 06:51 | Day surgery (SDC) | payer BC ==
[2022-11-06 14:45] VITALS: BMI 33.2
[2022-11-08] MEDS ORDERED: CEFAZOLIN 2 GM VIAL ONE (07:29)
[2022-11-08] MEDS ORDERED: Lidocaine 1% MPF 2 ML VIAL ONE (07:29)
[2022-11-08] MEDS ORDERED: Sodium Chloride 0.9% 100 ML ONE (07:29)
[2022-11-08] MEDS ORDERED: fentaNYL PF 100 MCG/2 ML SYRINGE ONE (09:25)
[2022-11-08] MEDS ORDERED: Bacitracin Zinc Ointment 30 gm TUBE ONE (09:31)
[2022-11-08] MEDS ORDERED: Bupivacaine 0.25% HCL 30 ML VIAL ONE (09:31)
[2022-11-08] MEDS ORDERED: Dexamethasone 20 MG/5 ML VIAL ONE (10:00)
[2022-11-08] MEDS ORDERED: Lidocaine 1% PF 5 ML VIAL ONE (10:00)
[2022-11-08] MEDS ORDERED: Ondansetron PF 4 MG/2 ML Vial ONE (10:00)
[2022-11-08] MEDS ORDERED: PROPOFOL 200 MG/20 ML VIAL ONE (10:00)
== END 2022-11-08 12:55 | disposition home or self-care (01) ==
LOC: SDC 06:51
PROVIDERS: ATTEND Urology
PROC: 0VTTXZZ Resection of Prepuce, External Approach (ICD-10-PCS; principal; 2022-11-08)
DX: N47.1 Phimosis (principal); E11.9 Type 2 diabetes mellitus without complications; E78.5 Hyperlipidemia, unspecified; Z79.82 Long term (current) use of aspirin; Z79.84 Long term (current) use of oral hypoglycemic drugs; Z79.85 Long-term (current) use of injectable non-insulin antidiabetic drugs
CPT/HCPCS: 36416; 88304; J1100; J2405; J2704; J3490; S0020